=== PATIENT | male | born 1955 | race Caucasian/White ===

== ENCOUNTER 2019-03-09 19:22 | Emergency (ER) | payer OTHER ==
[~2019-03-09] VITALS: Ht 175.3 cm; Wt 102.3 kg
[2019-03-09] MEDS ORDERED: APIX5TAB PO (19:48)
[2019-03-09] MEDS ORDERED: TAMS-13 PO (19:48)
[2019-03-09] MEDS ORDERED: BACITRACIN 0.9 GM PACKET OINTMENT TP ONE (21:30)
[2019-03-09 23:00] VITALS: BP 151/97
== END 2019-03-09 23:17 | disposition home or self-care (01) ==
LOC: EMS 19:25
DX: J40 Bronchitis, not specified as acute or chronic (principal)